=== PATIENT | male | born 1945 | race Caucasian/White ===

== ENCOUNTER 2021-06-19 08:45 | Inpatient (IN) ==
[~2021-06-19 08:45] MED LIST: Buffered Lidocaine 1% SYRIN 1 ml INTRADERM ONE; DiMENhydriNATE IV 50 mg/ml 1 ml VIAL IV PUSH ONE; HYDROcodone/ACETAMIN 5/325 mg TAB PO PRN; Lactated Ringers 1000 ml BAG 1,000 ML IV SCH; Metoclopramide 5 MG/ML VIAL (10 mg) IV PRN; Naloxone 0.4 mg VIAL 0.4 mg/ml 1 ml VIAL IV PRN; Ondansetron 4 mg VIAL 2 MG/ML 2 ml VIAL IV PRN
[2021-06-19] MEDS ORDERED: ceFAZolin 2 GM in NS PREMIX 2 GM/100 ML BAG IVPB ONE (13:10)
[2021-06-19] MEDS ORDERED: DiMENhydriNATE IV 50 mg/ml 1 ml VIAL ONE (13:24)
[2021-06-19] MEDS ORDERED: Midazolam 2 mg/2 ml VIAL 1 mg/ml 2 ml VIAL (2 mg) ONE (13:27)
[2021-06-19] MEDS ORDERED: Lidocaine 2% PF 5 ML VIAL ONE (13:27)
[2021-06-19] MEDS ORDERED: fentaNYL 100 mcg/2 ml 50 MCG/ML VIAL ONE ×4 (13:53→19:28)
[2021-06-19] MEDS ORDERED: Dexamethasone IV 4 MG/ML VIAL 1 ml VIAL ONE (13:53)
[2021-06-19] MEDS ORDERED: Bupivacaine 0.5% SDV PF 30ML VIAL ONE (13:54)
[2021-06-19] MEDS ORDERED: ROPIVACAINE 5 MG/ML 30 ML BTL (0.5%) ONE (15:02)
[2021-06-19] MEDS ORDERED: diPHENhydraMINE 25 mg TAB PO PRN (16:03)
[2021-06-19] MEDS ORDERED: Ondansetron ODT 4 mg TAB 4 MG TAB PO PRN (16:03)
[2021-06-19] MEDS ORDERED: Ondansetron 4 mg VIAL 2 MG/ML 2 ml VIAL IV PRN (16:03)
[2021-06-19] MEDS ORDERED: diPHENhydraMINE IV 50 MG/ML 1 ml VIAL (BENADRYL) IV PRN (16:03)
[2021-06-19] MEDS ORDERED: Morphine 2 MG/ML SYRINGE IV PRN (16:03)
[2021-06-19] MEDS ORDERED: Lactulose 30 ml UDC PO PRN (16:03)
[2021-06-19] MEDS ORDERED: Magnesium Hydroxide LIQ 30 ML UDC PO PRN (16:03)
[2021-06-19] MEDS ORDERED: Ondansetron 4 mg VIAL 2 MG/ML 2 ml VIAL ONE (16:18)
[2021-06-19] MEDS ORDERED: Propofol 10 MG/ML 20 ML BTL ONE (16:33)
[2021-06-19] MEDS ORDERED: HYDROcodone/ACETAMIN 5/325 mg TAB ONE (18:04)
[2021-06-19] MEDS: fentaNYL 100 mcg/2 ml 50 MCG/ML VIAL IV PRN ×6 (18:05→20:39)
[2021-06-19] MEDS: Lactated Ringers 1000 ml BAG 1,000 ML IV SCH (21:08)
[2021-06-19] MEDS: Magnesium Hydroxide LIQ 30 ML UDC PO SCH (22:21)
[2021-06-19] MEDS: ceFAZolin 1 GM ADVAN 1 GM in NS 0.9% 50 ML 50 ML IVPB SCH (23:29)
[2021-06-20 07:03] LABS: Hematocrit 42 % (42-52); Hemoglobin 14.2 g/dL (14.0-18.0); Mean Platelet Volume 7.7 fL (7.4-10.4); Platelet Count 205 10^3/uL (150-450)
[2021-06-20] MEDS ORDERED: Morphine ER 15 mg TAB ** extended release PO SCH (07:15)
[2021-06-20 07:21] LABS: Calcium 8.8 mg/dL (8.6-10.3); EGFR African American 98.3 (>60); EGFR Non-African American 81.2 (>60); Potassium 4.3 mmol/L (3.5-5.0)
[2021-06-20] MEDS: Lactated Ringers 1000 ml BAG 1,000 ML IV SCH (07:36)
[2021-06-20] MEDS: ceFAZolin 1 GM ADVAN 1 GM in NS 0.9% 50 ML 50 ML IVPB SCH ×2 (07:37→16:08)
[2021-06-20] MEDS ORDERED: Vitamin THERAPEUTIC TAB PO SCH (09:00)
[2021-06-20] MEDS: Magnesium Hydroxide LIQ 30 ML UDC PO SCH (09:26)
[2021-06-20 11:56] VITALS: BP 128/61
== END 2021-06-20 17:15 | disposition home or self-care (01) | DRG 470 ==
LOC: AA 12:33 → SSU 20:38
PROVIDERS: ADMIT Orthopaedic Surgery Adult Reconstructive Orthopaedic Surgery; ATTEND Orthopaedic Surgery Adult Reconstructive Orthopaedic Surgery